=== PATIENT | male | born 1960 | race Caucasian/White ===

== ENCOUNTER 2018-11-27 05:33 | Emergency (ER) | payer OTHER | END 2018-11-27 08:49 | disposition home or self-care (01) | LOC: FTE 05:33 | DX: S40.021A Contusion of right upper arm, initial encounter (principal); F17.210 Nicotine dependence, cigarettes, uncomplicated; W22.8XXA Striking against or struck by other objects, initial encounter; Y92.9 Unspecified place or not applicable | CPT/HCPCS: 73030; 73030-RT; 73060-RT; 99283-25 ==